=== PATIENT | female | born 1970 | race Caucasian/White ===

== ENCOUNTER 2016-11-27 13:53 | Day surgery (SDC) | payer BC, MEDICARE ==
[2016-11-22 16:50] LABS: HEMATOCRIT 42.5 % (36.0-48.0); HEMOGLOBIN 14.3 g/dL (12.0-16.0)
--- NOTE | ~2016-11-27 | OP ---
Record Of Operation [facility] [address] [place]. [address] NAME: GROVER GEORGE : 74 STATUS : [facility]#: [id number] AGE: 46 ADM/REG DATE : 11/27/16 MR#: [id number] REPORT SERV DATE: 11/28/16 DICTATED BY: Shaun HUTCHISON DATE: 11/27/16 REPORT STATUS : Draft TRANSCRIBED BY: SIOBHAN DATE: 11/27/16 DATE OF PROCEDURE: 11/27/2016 PREOPERATIVE DIAGNOSES: 1. Basal cell carcinoma of the right upper nasal-facial sulcus. 2. Defect of the right upper nasal-facial sulcus (involving the right nasal sidewall, the right medial cheek, and the right lower eyelid) secondary to Mohs' micrographic surgical excision of basal cell carcinoma. POSTOPERATIVE DIAGNOSES: 1. Basal cell carcinoma of the right upper nasal-facial sulcus. 2. Defect of the right upper nasal-facial sulcus (involving the right nasal sidewall, the right medial cheek, and the right lower eyelid) secondary to Mohs' micrographic surgical excision of basal cell carcinoma. NAME OF OPERATION: 1. Surgical excisional preparation of right upper nasal-facial sulcus defect. 2. Reconstruction of the right nasal component defect with a nasal rotation flap. 3. Reconstruction of the cheek and eyelid component of the defect with a medial cheek- lower eyelid rotation flap. FINDINGS: A 12 mm tall by 12 mm wide defect of the right upper nasal-facial sulcus (involving the right nasal sidewall, right medial cheek, and right lower eyelid). INDICATIONS: This 46-year-old female had Mohs' micrographic surgical excision of a biopsy- proven basal cell carcinoma this morning. She now presents for a reconstruction of the defect. I have seen a picture of the defect. It is of considerable size. At a separate consultation, prior to the Mohs' surgery, I discussed the pros and cons, alternatives, benefits, risks, limitations, and complications (including but not limited to reaction to anesthesia, scarring, infection, suture reaction, distortion of the eyelid or nose, re- operation for revision, and imponderables) were discussed at length. No guarantees expressed. She understands and wishes to proceed. Proper consent obtained. DESCRIPTION OF PROCEDURE: She was taken into the operating room and given general oral endotracheal anesthesia in the supine position. The bed was turned. The dressing on the face was removed revealing the defect. The entire face and upper neck were prepped with Hibiclens and saline followed by isopropyl alcohol except in the areas of the eye where diluted Betadine tea was used. No alcohol got in the wound or in the eyes. No Hibiclens got in the eyes. Sterile drapes were applied. The defect measured as stated above. The edges were beveled, and they were marked out for surgical excision. The nose, cheek, and eyelid were injected with 1% Xylocaine with 1:100,000 epinephrine. 0.5% Marcaine with 1:200,000 epinephrine was used along the lower half of the nose. Five minutes elapsed for vasoconstriction. Record Of Operation [place] [id number] [facility] [place]. [address] NAME: GROVER GEORGE : 74 STATUS : [facility] PAT#: [id number] AGE: 46 ADM/REG DATE : 11/27/16 MR#: [id number] REPORT SERV DATE: 11/28/16 DICTATED BY: Shaun HUTCHISON DATE: 11/27/16 REPORT STATUS : Draft TRANSCRIBED BY: SIOBHAN DATE: 11/27/16 Through the defect, a large rotation flap was developed on the entire right side of the nose through the defect with a guarded cautery tip. This dissection was carried over the nasal sidewall and then over the nasal dorsum on to the left upper nasal sidewall. The flap elevation was done with the cautery for hemostasis and flap elevation. Next, a medial cheek and right lower eyelid rotation flap was developed in the subcutaneous plane and above the level of the orbicularis oculi muscle. This was done with the guarded tip cautery in the area of the cheek and in the area of the lower eyelid, a [place] needle tip cautery was used at a lower setting just above the level of the orbicularis oculi muscle. This entire flap measured 4 cm x 3 cm. Next, the bevelled edges of the defect were excised with a 15 blade and forceps. Cautery was once again achieved with the electrocautery. Throughout the procedure, she oozed quite a bit requiring considerable cautery. Even the suction cautery was used in certain areas. The nasal flap was rotated and secured to the periosteum and into the nasal-facial sulcus with a 3-0 Vicryl suture. The cheek-eyelid flap was rotated to prevent ectropion in a superior medial direction and secured to the nasal-facial sulcus periosteum with 3-0 Vicryl. 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 That dog ear was excised. Cautery was obtained with electrocautery again. The wound was closed in that area with 4-0 and 5-0 Vicryl deep and 6-0 Prolene on the skin. The skin in the nasal-facial sulcus was coapted with 6-0 Prolene. The upper portion of the rotation flap was rotated superior medially, and the incision was extended superiorly on the lateral portion of the nose near the medial canthus. Excess of the flap was trimmed and then secured with 5-0 and 6-0 Vicryl deep. This portion was treated at skin level with Dermabond. All wounds were cleansed with hydrogen peroxide and dried. Mastisol and paper tape were applied in an anti- tension fashion. Estimated blood loss was 15 mL. Hemostasis was excellent at the end of the procedure. She was awakened, extubated, and taken to the recovery room in good condition having tolerated the procedure well. Home-going instructions included recheck in the office in 7 days. She is to keep the dressing dry and intact. She was given prescriptions for anti-nausea, pain medicine, and antibiotic. RHINA/SIOBHAN Shaun Hutchison M.D. / [id number]
[~2016-11-27 13:53] MED LIST: ATV1 PO; CYMBALTA30 PO; TORATAB PO
== END 2016-11-27 20:45 | disposition home or self-care (01) ==
LOC: SDC 13:53
PROVIDERS: Specialist
PROC: 0HR1X73 Replacement of Face Skin with Autologous Tissue Substitute, Full Thickness, External Approach (ICD-10-PCS; principal; 2016-11-27 15:30)
DX: C44.311 Basal cell carcinoma of skin of nose (principal); M79.7 Fibromyalgia; Z88.5 Allergy status to narcotic agent; J45.909 Unspecified asthma, uncomplicated; Z90.710 Acquired absence of both cervix and uterus; Z98.890 Other specified postprocedural states; Z85.820 Personal history of malignant melanoma of skin; Z92.21 Personal history of antineoplastic chemotherapy
CPT/HCPCS: 36415; 85014; 85018; A9270-GY; J0690; J2405; J2710; J3010